=== PATIENT | male | born 1990 | race Caucasian/White ===

== ENCOUNTER 2018-11-01 13:22 | Emergency (ER) | payer SELFPAY ==
[2018-11-01 13:28] VITALS: BP 172/92
--- NOTE | 2018-11-01 14:02 | ER Document Report ---
HPI - HPI Patient complains to provider of: Insect bite Time Seen by Provider: 11/01/18 13:53 Onset: Other - 2 days ago Onset/Duration: Persistent Quality of pain: Achy Pain Level: 1 Context: She complains of insect bite to left forearm got 2 days ago. Patient states area started out with just a large red area. Patient states that he put a peroxide soaked dressing on the wound for 3 hours. Patient complains of persistent pain and redness and is worried about possible infection. Associated Symptoms: Other - Insect bite to left forearm. denies: Fever Exacerbated by: Denies Relieved by: Denies Similar symptoms previously: No Recently seen / treated by doctor: No - ROS ROS below otherwise negative: Yes Systems Reviewed and Negative: Yes All other systems reviewed and negative - CONSTITUTIONAL Constitutional: DENIES: Fever - NEURO Neurology: DENIES: Headache - MUSCULOSKELETAL Musculoskeletal: REPORTS: Extremity pain - DERM Skin Color: Erythema Notes: Insect bite Past Medical History - General Information source: Patient - Social History Smoking Status: Current Every Day Smoker Chew tobacco use (# tins/day): No Smoking Education Provided: Yes Frequency of alcohol use: None Drug Abuse: None Occupation: [employer] Family History: CAD, Hyperlipidemia, Hypertension Patient has suicidal ideation: No Patient has homicidal ideation: No Pulmonary Medical History: Reports: Hx Bronchitis Renal/ Medical History: Denies: Hx Peritoneal Dialysis Traumatic Medical History: Reports: Hx Fractures Surgical Hx: Negative - Immunizations Immunizations up to date: Yes Hx Diphtheria, Pertussis, Tetanus Vaccination: Yes Vertical Provider Document - CONSTITUTIONAL Agree With Documented VS: No - Patient not tachycardic Exam Limitations: No Limitations General Appearance: WD/WN, No Apparent Distress - INFECTION CONTROL TRAVEL OUTSIDE OF THE [place] IN LAST 30 DAYS: No - HEENT HEENT: Atraumatic, Normocephalic - NECK Neck: Normal Inspection, Supple - RESPIRATORY Respiratory: No Respiratory Distress - CARDIOVASCULAR Pulses: Normal: Radial - MUSCULOSKELETAL/EXTREMETIES Musculoskeletal/Extremeties: MAEW, FROM - NEURO Level of Consciousness: Awake, Alert, Appropriate Motor/Sensory: No Motor Deficit - DERM Integumentary: Warm, Dry. negative: Abscess Notes: Patient with erythematous, excoriated lesions to the left forearm. Area is somewhat indurated., No fluctuance, no abscess at this time. Course - Vital Signs Vital signs: Temp Pulse Resp BP Pulse Ox 98.1 F 117 H 18 172/92 H 96 11/01/18 13:26 11/01/18 13:26 11/01/18 13:26 11/01/18 13:26 11/01/18 13:26 Discharge - Discharge Clinical Impression: Insect bite Qualifiers: Encounter type: initial encounter Site of insect bite: forearm Laterality: left Qualified Code(s): S50.862A - Insect bite (nonvenomous) of left forearm, initial encounter Condition: Stable Disposition: HOME, SELF-CARE Instructions: Cephalexin ([facility]), Topical Steroid Cream or Ointment ([facility]), Swollen Insect Bite or Sting ([facility]) Additional Instructions: Return immediately for any new or worsening symptoms Followup with your primary care provider, call tomorrow to make a followup appointment Avoid scratching at her picking the skin lesions Do not soak or cleanse wound with peroxide solution Prescriptions: Cephalexin Monohydrate [Keflex 500 mg Capsule] 500 mg PO Q6H 5 Days capsule Triamcinolone Acetonide [Aristocort 0.1% Cream] 1 applic TP TID #30 gm Forms: Smoking Cessation Education Referrals: [facility] [Provider Group] - Follow up as needed
== END 2018-11-01 15:00 | disposition home or self-care (01) ==
LOC: ER 13:22
DX: S50.862A Insect bite (nonvenomous) of left forearm, initial encounter (principal); W57.XXXA Bitten or stung by nonvenomous insect and other nonvenomous arthropods, initial encounter; F17.200 Nicotine dependence, unspecified, uncomplicated
CPT/HCPCS: 99281